=== PATIENT | female | born 1990 | race Caucasian/White ===

== ENCOUNTER 2016-10-02 21:40 | Outpatient (CLI) | payer OTHER | END 2016-10-02 23:27 | disposition home or self-care (01) | LOC: GENOP 21:40 | DX: O99.89 Other specified diseases and conditions complicating pregnancy, childbirth and the puerperium (principal); R10.9 Unspecified abdominal pain; Z3A.35 35 weeks gestation of pregnancy | CPT/HCPCS: G0463 ==

== ENCOUNTER → 2021-10-14 | Outpatient (CLI) | payer OTHER | LOC: RAD 16:25 | DX: R05.9 Cough, unspecified (principal); M54.2 Cervicalgia; M54.50 Low back pain, unspecified | CPT/HCPCS: 71046; 72050; 72072; 72110 ==

== ENCOUNTER 2021-12-10 09:32 | Emergency (ER) | payer OTHER ==
[2021-12-10 10:21] LABS: HEMOGLOBIN 11.9 gm/dl (12.3-15.3); WHITE BLOOD COUNT 6.6 K/UL (4.5-11.0)
[2021-12-10 10:41] LABS: BUN/CREATININE RATIO 13 (0-10)
[2021-12-10] MEDS ORDERED: K-TAB ER20 MEQ PO (11:44)
== END 2021-12-10 12:12 | disposition home or self-care (01) ==
LOC: ER1 09:32
PROVIDERS: Emergency Medicine
DX: R07.89 Other chest pain (principal); E87.6 Hypokalemia
CPT/HCPCS: 71045; 80053; 81001; 82550; 82553; 83036; 84484; 84703; 85025; 93005; 94664; 99285